=== PATIENT | male | born 1960 | race Caucasian/White ===

== ENCOUNTER → 2017-04-14 | Outpatient (CLI) | payer MEDICAID ==
[~2017-04-14] MED LIST: GADOBUTROL 10 ML VIAL IVP ONE; IOPAMIDOL (ISOVUE 370) 100 ML BTL IV ONE; LIDOCAINE 1% 300 MG/30 ML SDV ONE; ROPIVACAINE HCL 150 MG/30 ML INJ ONE; TRIAMCINOLONE ACETONIDE 40 MG/ML VIAL ONE
== END ==
LOC: FIMAGING 10:20
PROVIDERS: ATTEND Family Medicine
PROC: 3E0U3GC Introduction of Other Therapeutic Substance into Joints, Percutaneous Approach (ICD-10-PCS; principal; 2017-04-14)
DX: M25.551 Pain in right hip (principal)
CPT/HCPCS: A9585; J2795; J3301; Q9967